=== PATIENT | male | born 1980 | race Caucasian/White ===

== ENCOUNTER 2022-06-05 09:49 | Outpatient (CLI) | payer BC ==
[~2022-06-05 09:49] MED LIST: Iopamidol 300 61% 100 ML VIAL FS ONE
== END 2022-06-05 09:50 | disposition home or self-care (01) ==
LOC: CSHCT 09:49 → EDBD 10:30
PROVIDERS: ATTEND Otolaryngology Plastic Surgery within the Head & Neck
DX: R06.1 Stridor (principal)
CPT/HCPCS: 70491; Q9967